=== PATIENT | male | born 1950 | race Caucasian/White ===

== ENCOUNTER 2019-11-12 18:22 | Emergency (ER) | payer MEDICARE ==
[2019-11-12 18:27] VITALS: BP 183/99; PULSE 97; RESP 20; TEMP 98.2
[2019-11-12] MEDS ORDERED: DIPH,PERTUS(ACELL)TETVAC-LF 0.5 ML VIAL IM ONE (18:34)
[2019-11-12] MEDS ORDERED: LIDOCAINE 1% INJ 10MG/ML (20 ML MDV) SQ ONE (18:34)
[2019-11-12] MEDS ORDERED: CEPHALEXIN 500MG STARTER PACK 4 CAP BTL PO STA (18:59)
--- NOTE | 2019-11-12 18:59 | ED ---
Wound/Laceration HPI - General Chief Complaint: Wound/Laceration Stated Complaint: thumb lac Time Seen by Provider: 11/12/19 18:34 Source: patient Mode of arrival: ambulatory Limitations: no limitations - History of Present Illness Initial Comments: 69yo male presenting today for chief complaint of thumb laceration x just prior to arrival. Patient states that that he was moving a stove when he caught his right thumb. Patient states would not I need laceration repair and presented to the ER. Patient has no limitations in range of motion of thumb strength or decreased sensation. Patient has no additional complaints. Patient appears well nontoxic. Unsure of last tetanus. Patient presented for repair. Denies small shards or debris that could have gotten into the cut. Patient has no additional complaints. Denies other areas of injury. - Related Data Previous Rx's Medication Instructions Recorded Acetaminophen with Codeine 1 each PO Q4H PRN #20 tab 10/28/14 [Tylenol w/codeine #3] Acetaminophen with Codeine 1 each PO Q4H PRN #20 tab 10/28/14 [Tylenol w/codeine #3] Ibuprofen [Motrin] 800 mg PO Q8HR PRN #30 tab 10/28/14 Cephalexin [Keflex] 500 mg PO Q8HR 3 Days #9 cap 11/12/19 Allergies Allergy/AdvReac Type Severity Reaction Status Date / Time Penicillins Allergy Unknown Verified 11/12/19 18:27 Childhood Review of Systems ROS Statement: Those systems with pertinent positive or pertinent negative responses have been documented in the HPI. ROS Other: All systems not noted in ROS Statement are negative. Past Medical History Past Medical History: No Reported History History of Any Multi-Drug Resistant Organisms: None Reported Past Surgical History: Bowel Resection Past Psychological History: Anxiety, Depression Smoking Status: Former smoker Past Alcohol Use History: None Reported Past Drug Use History: None Reported General Exam - General Exam Comments Initial Comments: General: The patient is awake and alert, in no distress Eye: +3 mm pupils are equal, round and reactive to light, extra-ocular movements are intact. No nystagmus. There is normal conjunctiva bilaterally. No signs of icterus. Cardiovascular: There is a regular rate and rhythm. No murmur, rub or gallop is appreciated. Respiratory: Lungs are clear to auscultation, respirations are non-labored, breath sounds are equal. No wheezes, stridor, rales, or rhonchi. Gastrointestinal: Soft, non-distended, non-tender abdomen without masses or organomegaly noted. There is no rebound or guarding present. Musculoskeletal: Normal ROM, no tenderness. Strength 5/5 of the thumb and MCP and IP joint. Sensation intact. Radial pulses equal bilaterally 2+. Neurological: A&O x 3. CN II-XII intact grossly, There are no obvious motor or sensory deficits. Coordination appears grossly intact. Speech is normal. Skin: Skin is warm and dry and no rashes. Dog ear like laceration of the right thumb dorsal surface. Patient has no exposure of tendon/underlying structures. Mild oozing active bleeding. Psychiatric: Cooperative, appropriate mood & affect, normal judgment. Limitations: no limitations Course Vital Signs 11/12/19 18:24 Temperature 98.2 F Pulse Rate 97 Respiratory 20 Rate Blood Pressure 183/99 O2 Sat by Pulse 99 Oximetry Procedures - Laceration Laceration #1 Consent Obtained: verbal consent Indication: laceration Site: hand (right thumb) Size (cm): 2 Description: irregular Depth: simple, single layer Anesthetic Used: lidocaine 1% Anesthesia Technique: local infiltration Amount (mls): 1 Pre-repair: wound explored, irrigated extensively, deep structures intact Type of Sutures: nylon Size of Sutures: 5-0 Number of Sutures: 5 Technique: simple, interrupted Patient Tolerated Procedure: well, no complications Medical Decision Making - Medical Decision Making 69-year-old male presented for thumb laceration irrigated extensively explored. Appears superficial underlying structures. no weakness appreciated at the ip or mcp joints. sensation intact. Laceration repair wound edges approximated well patient will be discharged with antibiotics instruction for suture care and return parameters. Patient is to follow-up primary care provider Rj discuss patient verbalizes understanding Disposition Clinical Impression: Laceration of right thumb Disposition: HOME SELF-CARE Condition: Good Instructions (If sedation given, give patient instructions): Care For Your Stitches (ED), Laceration (ED) Additional Instructions: Please use medication as discussed. Please follow-up with family doctor in the next 2 days, return for 7-10 days for suture removal. [facility] if the symptoms increase or worsen or for any other concerns. Prescriptions: Cephalexin [Keflex] 500 mg PO Q8HR 3 Days #9 cap Is patient prescribed a controlled substance at d/c from ED?: No Referrals: Sho Handy MD [Primary Care Provider] - 1-2 days Time of Disposition: 18:59
== END 2019-11-12 19:30 | disposition home or self-care (01) ==
LOC: EC 18:22
DX: S61.011A Laceration without foreign body of right thumb without damage to nail, initial encounter (principal); Z23 Encounter for immunization; Z88.0 Allergy status to penicillin; Z87.891 Personal history of nicotine dependence; W23.0XXA Caught, crushed, jammed, or pinched between moving objects, initial encounter
CPT/HCPCS: 90715; 99282; 12001; 90471; J2001

== ENCOUNTER 2020-10-16 12:28 | Emergency (ER) | payer MEDICARE ==
[2020-10-16 12:48] VITALS: BP 188/85; PULSE 89; RESP 20; TEMP 98.3
[2020-10-16] MEDS ORDERED: LIDOCAINE 1%-EPI 1:100,000 20 ML VIAL SQ STA (14:09)
--- NOTE | 2020-10-16 14:48 | ED ---
Wound/Laceration HPI - General Chief Complaint: Wound/Laceration Stated Complaint: leg lac Time Seen by Provider: 10/16/20 14:05 Source: patient Mode of arrival: wheelchair Limitations: no limitations - History of Present Illness Initial Comments: 70-year-old male presents to emergency Department with a chief complaint of laceration. He states this occurred about one hour prior to arrival. Patient states he was using a cutoff wheel earlier today when it slipped, lacerating the anterior aspect of his left lower extremity. Reports some bleeding which has since mostly resolved. Tetanus is up-to-date. Reports some pain with palpation to the region but reports full range of motion in his lower extremity. Denies any paresthesias. Denies taking medication to alleviate the symptoms. Denies blood thinners. - Related Data Previous Rx's Medication Instructions Recorded Acetaminophen with Codeine 1 each PO Q4H PRN #20 tab 10/28/14 [Tylenol w/codeine #3] Acetaminophen with Codeine 1 each PO Q4H PRN #20 tab 10/28/14 [Tylenol w/codeine #3] Ibuprofen [Motrin] 800 mg PO Q8HR PRN #30 tab 10/28/14 Cephalexin [Keflex] 500 mg PO Q8HR 3 Days #9 cap 11/12/19 Cephalexin [Keflex] 500 mg PO TID 5 Days #15 cap 10/16/20 Allergies Allergy/AdvReac Type Severity Reaction Status Date / Time Penicillins Allergy Unknown Verified 10/16/20 12:48 Childhood Review of Systems ROS Statement: Those systems with pertinent positive or pertinent negative responses have been documented in the HPI. ROS Other: All systems not noted in ROS Statement are negative. Past Medical History Past Medical History: No Reported History History of Any Multi-Drug Resistant Organisms: None Reported Past Surgical History: Bowel Resection Past Psychological History: Anxiety, Depression Smoking Status: Never smoker Past Alcohol Use History: None Reported Past Drug Use History: Marijuana General Exam Limitations: no limitations General appearance: alert, in no apparent distress Head exam: Present: atraumatic, normocephalic, normal inspection Eye exam: Present: normal appearance, PERRL, EOMI Pupils: Present: normal accommodation ENT exam: Present: normal exam, normal oropharynx, mucous membranes moist Neck exam: Present: normal inspection, full ROM. Absent: tenderness, lymphadenopathy Respiratory exam: Present: normal lung sounds bilaterally. Absent: respiratory distress Cardiovascular Exam: Present: regular rate, normal rhythm, normal heart sounds. Absent: systolic murmur Extremities exam: Present: full ROM, tenderness (Tenderness at the laceration site), normal capillary refill, other (Palpable DP and PT bilaterally. Sensation intact in the left lower extremity). Absent: normal inspection (7 cm laceration to the anterior aspect of the left lower extremity.), pedal edema, joint swelling, calf tenderness Back exam: Present: normal inspection, full ROM. Absent: tenderness, CVA tenderness (R), CVA tenderness (L) Neurological exam: Present: alert, oriented X3, normal gait Psychiatric exam: Present: normal affect, normal mood Skin exam: Present: warm, dry, intact, normal color Course Vital Signs 10/16/20 12:44 Temperature 98.3 F Pulse Rate 89 Respiratory 20 Rate Blood Pressure 188/85 O2 Sat by Pulse 96 Oximetry Procedures - Laceration Laceration #1 Consent Obtained: verbal consent Indication: laceration Site: lower extremity Size (cm): 7 Description: linear, clean Depth: simple, single layer Sedation/Analgesia: none Anesthetic Used: lidocaine 1%, with epi Anesthesia Technique: local infiltration Amount (mls): 5 Pre-repair: irrigated extensively, deep structures intact Type of Sutures: nylon Size of Sutures: 4-0 Number of Sutures: 7 Technique: simple, interrupted Patient Tolerated Procedure: well, no complications Medical Decision Making - Medical Decision Making 70-year-old male presents to emergency Department with the chief complaint laceration. Laceration site was thoroughly irrigated with saline. This is superficial laceration with no signs of foreign body. His tetanus is up-to-date. Laceration site was repaired with 7 sutures. Patient told the procedure well. He will be discharged with Keflex. Return parameters were thoroughly discussed with patient was understanding and agreeable. Case discussed with Dr. Ch. Disposition Clinical Impression: Laceration Disposition: HOME SELF-CARE Condition: Stable Instructions (If sedation given, give patient instructions): Care For Your Stitches (DC), Laceration (DC) Additional Instructions: Please return to the emergency room in 12 days to have sutures removed. Please watch for any signs of infection which may include increased pain, swelling, redness, fever or chills. Please return to emergency room for any signs of infection do occur. Please use clean soap and water over the area to prevent scabbing over your stitches. Please leave wound covered for the first 24-48 hours and then leave wound open to air. Please return to the emergency room for any other concerns. Prescriptions: Cephalexin [Keflex] 500 mg PO TID 5 Days #15 cap Is patient prescribed a controlled substance at d/c from ED?: No Referrals: Sho Handy MD [Primary Care Provider] - 1-2 days Time of Disposition: 14:48
== END 2020-10-16 14:58 | disposition home or self-care (01) ==
LOC: EC 12:28
DX: S81.812A Laceration without foreign body, left lower leg, initial encounter (principal); F32.9 Major depressive disorder, single episode, unspecified; W26.8XXA Contact with other sharp object(s), not elsewhere classified, initial encounter; F12.90 Cannabis use, unspecified, uncomplicated
CPT/HCPCS: 12002; 96372; 99283

== ENCOUNTER → 2022-04-07 | Outpatient (CLI) | payer MEDICARE ==
--- NOTE | 2022-04-07 14:54 | XR ---
EXAMINATION TYPE: XR chest 2V DATE OF EXAM: 04/07/2022 2:43 PM COMPARISON: Right wrist radiographs 10/20/2014. TECHNIQUE: XR chest 2V Frontal and lateral views of the chest. CLINICAL INDICATION:Male, 72 years old with history of R05.9 COUGH; FINDINGS: Lungs/Pleura: Small right pleural effusion with basilar patchy airspace opacities. Pulmonary vascularity: Unremarkable. Heart/mediastinum: Cardiomediastinal silhouette is unremarkable. Musculoskeletal: Multiple level degenerative disc disease changes seen throughout the spine. IMPRESSION: Small right pleural effusion with patchy basilar airspace opacities which may represent infiltrate an d/or atelectasis.
== END | disposition home or self-care (01) ==
LOC: RADXRMAIN 14:32
PROVIDERS: ATTEND Internal Medicine
DX: J90 Pleural effusion, not elsewhere classified (principal)
CPT/HCPCS: 71046

== ENCOUNTER 2022-04-27 12:14 | Observation (INO) | payer MEDICARE ==
--- NOTE | 2022-04-27 13:30 | ED ---
SOB HPI - General Chief Complaint: Shortness of Breath Stated Complaint: EVER Time Seen by Provider: 04/27/22 12:57 Source: patient, family, RN notes reviewed Mode of arrival: ambulatory Limitations: no limitations - History of Present Illness Initial Comments: 72-year-old male former smoker who still smokes marijuana no diagnosed history of lung disease but he did also work in a brass foundry in the past who presents with complaints of shortness of breath getting worse not better he was diagnosed with a pleural effusion on x-ray done on the sixth of this month. He also had been diagnosed with bronchitis placed on medication which did help. He still having shortness of breath now some cough no overt fevers chills or sweats approximate 10 pound weight loss recently. - Related Data Home Medications Medication Instructions Recorded Confirmed Ascorbic Acid [Vitamin C] 500 mg PO DAILY 04/27/22 04/27/22 Calcium Carbonate [Calcium] 600 mg PO DAILY 04/27/22 04/27/22 Ibuprofen [Motrin] 400 mg PO Q4H 04/27/22 04/27/22 Magnesium 200 mg PO DAILY 04/27/22 04/27/22 Venlafaxine HCl ER [Effexor XR] 75 mg PO DAILY 04/27/22 04/27/22 Venlafaxine HCl [Effexor XR] 150 mg PO DAILY 04/27/22 04/27/22 Zinc Gluconate [Zinc] 50 mg PO DAILY 04/27/22 04/27/22 Allergies Allergy/AdvReac Type Severity Reaction Status Date / Time Penicillins Allergy Rash/Hives Verified 04/27/22 14:23 Review of Systems ROS Statement: Those systems with pertinent positive or pertinent negative responses have been documented in the HPI. ROS Other: All systems not noted in ROS Statement are negative. Past Medical History Past Medical History: No Reported History History of Any Multi-Drug Resistant Organisms: None Reported Past Surgical History: Bowel Resection Past Psychological History: Anxiety, Depression Smoking Status: Never smoker Past Alcohol Use History: None Reported Past Drug Use History: Marijuana General Exam - General Exam Comments Initial Comments: This is a well-developed well-nourished awake alert oriented 4 male Limitations: no limitations General appearance: alert, in no apparent distress Head exam: Present: atraumatic, normocephalic, normal inspection Eye exam: Present: normal appearance, PERRL, EOMI. Absent: scleral icterus, conjunctival injection, periorbital swelling ENT exam: Present: mucous membranes dry Neck exam: Present: normal inspection, full ROM, other. Absent: tenderness, meningismus, lymphadenopathy Respiratory exam: Present: decreased breath sounds (No stridor or bruits). Absent: respiratory distress, wheezes, rales, rhonchi, stridor Cardiovascular Exam: Present: regular rate, normal rhythm, normal heart sounds. Absent: systolic murmur, diastolic murmur, rubs, gallop, clicks GI/Abdominal exam: Present: soft, normal bowel sounds. Absent: distended, tenderness, guarding, rebound, rigid Extremities exam: Present: normal inspection, full ROM, normal capillary refill. Absent: tenderness, pedal edema, joint swelling, calf tenderness Back exam: Present: normal inspection Neurological exam: Present: alert, oriented X3, CN II-XII intact Psychiatric exam: Present: normal affect, normal mood Skin exam: Present: warm, dry, intact, normal color. Absent: rash Course Vital Signs 04/27/22 12:50 Temperature 97.8 F Pulse Rate 106 H Respiratory 18 Rate Blood Pressure 166/103 O2 Sat by Pulse 96 Oximetry Medical Decision Making - Medical Decision Making I did discuss the findings with the patient and family members CAT scan is negative for evidence of a however is evidence of effusion in possible mass. Dr. Cooper did come the emergency department to see the patient patient will be admitted with consultation by Dr. Perkins as well as cardiology. Was pt. sent in by a medical professional or institution? @ No -[by , PA, MICROSYSTEMS ENGINEER, urgent care, hospital, or correction] Did you speak to anyone other than the patient for history? @ EMS personnel -[EMS, parent, family, police, friend?] Did you review nursing and triage notes? @ Agree -[agree or disagree, why?] Were old charts reviewed? @ Previous x-ray reviewed which showed evidence of right effusion-[outside hosp., previous admissions, EMS record, old EKG, old radiological studies, urgent care reports/EKGs, correction records?] Differential Diagnosis? @ CHF, angina, CAD, pulmonary embolus, -[chest pain, altered mental status abdominal pain women, abdominal pain men, vaginal bleeding, weakness, fever, dyspnea, syncope, headache, dizziness, GI bleed, back pain, seizure] EKG interpreted by me (3pts min.)? @ Yes-[none] X-rays interpreted by me (1pt min.)? @ Yes-[none] CT interpreted by me (1pt min.)? @ Yes-[none] U/S interpreted by me (1pt. min.)? @ -[none] What testing was considered but not performed? (CT, X-rays, U/S, labs)? Why? @ Not applicable [CT, X-rays, U/S, labs? Why?] What meds were considered but not given? Why? @ -[none] Did you discuss the management of the patient with other professionals? @ Yes Dr. Cooper -[professionals i.e. Dr, PA, MICROSYSTEMS ENGINEER, Lab, RT, Psych Nurse, Rip Sawyer, Collision Technician, Teacher, Broke Man, case resource manager? Give summary] Did you reconcile home meds? @ -[none] Was smoking cessation discussed for >3mins.? @ Yes-[none] Was critical care preformed (if so, how long)? @ -[none] Were there social determinants of health that impacted care today? How? (Homelessness, low income, unemployed, alcoholism, drug addiction, transportation, low edu. Level, literacy, decrease access to med. care, correction, rehab)? @ -[Homelessness, low income, unemployed, alcoholism, drug addiction, transportation, low edu. Level, literacy, decrease access to med. care, correction, rehab?] Was there de-escalation of care discussed even if they declined? (Discuss DNR or withdrawal of care, Hospice)? @ -[Discuss DNR or withdrawal of care, Hospice?] What co-morbidities impacted this encounter? (DM, HTN, Smoking, COPD, CAD, Cancer, CVA, Hep., AIDS, mental health diagnosis, sleep apnea, morbid obesity)? @ Considerations COPD-[DM, HTN, Smoking, COPD, CAD, Cancer, CVA, Hep., AIDS, mental health diagnosis, sleep apnea, morbid obesity?] Was patient admitted / discharged? @ Admitted -[hospital course] Undiagnosed new problem with uncertain prognosis? @ Possible lung mass-[none] Drug Therapy requiring intensive monitoring for toxicity (Heparin, Nitro, Insulin, Cardizem)? @ -[none] Were any procedures done? @ -[none] Diagnosis/symptom? @ Pleural effusion, elevated troponin, elevated d-dimer, possible lung mass- [default] Acute, or Chronic, or Acute on Chronic? @ -[default] Uncomplicated (without systemic symptoms) or Complicated (systemic symptoms)? @ -[default] Side effects of treatment? @ -[none] Exacerbation, Progression, or Severe Exacerbation] @ -[no] Poses a threat to life or bodily function? @ -[no] - Lab Data Result diagrams: 04/27/22 14:17 04/27/22 14:17 Lab Results 04/27/22 04/27/22 04/27/22 Range/Units 14:17 14:17 14:17 WBC 9.4 (3.8-10.6) k/uL RBC 4.39 (4.30-5.90) m/uL Hgb 14.5 (13.0-17.5) gm/dL Hct 43.5 (39.0-53.0) % MCV 99.2 (80.0-100.0) fL MCH 33.1 (25.0-35.0) pg MCHC 33.3 (31.0-37.0) g/dL RDW 12.5 (11.5-15.5) % Plt Count 184 (150-450) k/uL MPV 10.2 Neutrophils % 80 % Lymphocytes % 11 % Monocytes % 6 % Eosinophils % 1 % Basophils % 1 % Neutrophils # 7.6 (1.3-7.7) k/uL Lymphocytes # 1.0 (1.0-4.8) k/uL Monocytes # 0.5 (0-1.0) k/uL Eosinophils # 0.1 (0-0.7) k/uL Basophils # 0.1 (0-0.2) k/uL PT 10.5 (9.0-12.0) sec INR 1.0 (<1.2) APTT 25.2 (22.0-30.0) sec D-Dimer 1.00 H (<0.60) mg/L FEU Sodium 140 (137-145) mmol/L Potassium 4.3 (3.5-5.1) mmol/L Chloride 112 H (98-107) mmol/L Carbon Dioxide 22 (22-30) mmol/L Anion Gap 6 mmol/L BUN 24 H (9-20) mg/dL Creatinine 1.00 (0.66-1.25) mg/dL Est GFR (CKD-EPI)AfAm 87 (>60 ml/min/1.73 sqM) Est GFR (CKD-EPI)NonAf 75 (>60 ml/min/1.73 sqM) Glucose 117 H (74-99) mg/dL Plasma Lactic Acid Col[place] (0.7-2.0) mmol/L Calcium 8.8 (8.4-10.2) mg/dL Magnesium 1.9 (1.6-2.3) mg/dL Total Bilirubin 0.9 (0.2-1.3) mg/dL AST 35 (17-59) U/L ALT 29 (4-49) U/L Alkaline Phosphatase 68 (38-126) U/L Troponin I (0.000-0.034) ng/mL NT-Pro-B Natriuret Pep pg/mL Total Protein 6.4 (6.3-8.2) g/dL Albumin 3.8 (3.5-5.0) g/dL 04/27/22 04/27/22 04/27/22 Range/Units 14:17 14:17 14:17 WBC (3.8-10.6) k/uL RBC (4.30-5.90) m/uL Hgb (13.0-17.5) gm/dL Hct (39.0-53.0) % MCV (80.0-100.0) fL MCH (25.0-35.0) pg MCHC (31.0-37.0) g/dL RDW (11.5-15.5) % Plt Count (150-450) k/uL MPV Neutrophils % % Lymphocytes % % Monocytes % % Eosinophils % % Basophils % % Neutrophils # (1.3-7.7) k/uL Lymphocytes # (1.0-4.8) k/uL Monocytes # (0-1.0) k/uL Eosinophils # (0-0.7) k/uL Basophils # (0-0.2) k/uL PT (9.0-12.0) sec INR (<1.2) APTT (22.0-30.0) sec D-Dimer (<0.60) mg/L FEU Sodium (137-145) mmol/L Potassium (3.5-5.1) mmol/L Chloride (98-107) mmol/L Carbon Dioxide (22-30) mmol/L Anion Gap mmol/L BUN (9-20) mg/dL Creatinine (0.66-1.25) mg/dL Est GFR (CKD-EPI)AfAm (>60 ml/min/1.73 sqM) Est GFR (CKD-EPI)NonAf (>60 ml/min/1.73 sqM) Glucose (74-99) mg/dL Plasma Lactic Acid [place] 1.1 (0.7-2.0) mmol/L Calcium (8.4-10.2) mg/dL Magnesium (1.6-2.3) mg/dL Total Bilirubin (0.2-1.3) mg/dL AST (17-59) U/L ALT (4-49) U/L Alkaline Phosphatase (38-126) U/L Troponin I 0.083 H* (0.000-0.034) ng/mL NT-Pro-B Natriuret Pep 3280 pg/mL Total Protein (6.3-8.2) g/dL Albumin (3.5-5.0) g/dL - EKG Data -: EKG Interpreted by Me EKG Comments: I did interpret EKG sinus tachycardia rate 104. Interval 149 QRS duration 94 QT since QTC 367/427 possible right atrial enlargement nonspecific T-wave configuration unifocal PVC noted - Radiology Data Interpreted by me: Did interpret imaging evidence of right effusion on x-ray CT shows evidence of effusion with a possible mass. No pulmonary embolus identified Disposition Clinical Impression: Pleural effusion, right, Lung mass, Elevated troponin, Elevated d-dimer Disposition: ADMITTED IP TO THIS [facility] Condition: Fair Referrals: Sho Handy MD [Primary Care Provider] - 1-2 days Decision Date: 04/27/22 Decision Time: 16:00
--- NOTE | 2022-04-27 13:44 | XR ---
EXAMINATION TYPE: XR chest 2V DATE OF EXAM: 04/27/2022 1:40 PM COMPARISON: 04/07/2022 TECHNIQUE: XR chest 2V Frontal and lateral views of the chest. CLINICAL INDICATION:Male, 72 years old with history of difficulty breathing; FINDINGS: Lungs/Pleura: Increase loculated opacities in the right pleura most pronounced in the lower lateral a spect. There is no evidence for left-sided pleural effusion, focal consolidation, or pneumothorax. Pulmonary vascularity: Unremarkable. Heart/mediastinum: Cardiomediastinal silhouette is unremarkable. Musculoskeletal: No acute osseous pathology. IMPRESSION: Increased right loculated pleural effusion with fluid in the right minor fissure.
[2022-04-27 14:28] LABS: Basophils # (A) 0.1 k/uL (0-0.2); Basophils % (A) 1 %; Eosinophils # (A) 0.1 k/uL (0-0.7); Eosinophils % (A) 1 %; HCT 43.5 % (39.0-53.0); HGB 14.5 gm/dL (13.0-17.5); Lymphocytes % (A) 11 %; MCH 33.1 pg (25.0-35.0); MCHC 33.3 g/dL (31.0-37.0); MCV 99.2 fL (80.0-100.0); Mean Platelet Volume 10.2; Monocytes # (A) 0.5 k/uL (0-1.0); Monocytes % (A) 6 %; Neutrophils # (A) 7.6 k/uL (1.3-7.7); Neutrophils % (A) 80 %; Platelet Count 184 k/uL (150-450); RBC 4.39 m/uL (4.30-5.90); RDW 12.5 % (11.5-15.5); WBC 9.4 k/uL (3.8-10.6)
[2022-04-27 14:37] LABS: Albumin 3.8 g/dL (3.5-5.0); Calcium 8.8 mg/dL (8.4-10.2); Magnesium 1.9 mg/dL (1.6-2.3); Potassium 4.3 mmol/L (3.5-5.1); Total Bilirubin 0.9 mg/dL (0.2-1.3); Total Protein 6.4 g/dL (6.3-8.2)
[2022-04-27 14:43] LABS: Partial Thromboplastin Time 25.2 sec (22.0-30.0); Prothrombin Time 10.5 sec (9.0-12.0)
--- NOTE | 2022-04-27 16:08 | CT ---
EXAMINATION TYPE: CT angio chest DATE OF EXAM: 04/27/2022 COMPARISON: None HISTORY: 72 year-old male shortness of breath, possible PE. TECHNIQUE: Contiguous axial scanning of the chest performed with IV Contrast, patient injected with 7 7 mL of Isovue 370. Coronal/sagittal MIP reconstructions performed. CT DLP: 417.5 mGycm Automated exposure control for dose reduction was used. FINDINGS: Heart upper limits of normal in size without pericardial effusion. No flattening of the interventricu lar septum though there is reflux into the hepatic veins. Aneurysmal ascending aorta at 4.1 cm. Dense contrast bolus obscures the arch vessels. Mild aneurysm u pper descending thoracic aorta 3.7 cm and distally at 3.1 cm. Mildly enlarged mediastinal lymph nodes, lower right paratracheal up to 1.2 cm and right hilar measur ing up to 2.0 cm. Left hilar measuring 1.8 x 1.1 cm. Subcarinal measuring 1.6 cm. Large caliber to the main right and left pulmonary arteries measuring up to 3.1 cm compatible with un derlying pulmonary hypertension. There is satisfactory opacification of the pulmonary arterial system without evidence for pulmonary embolus. Scattered mild septal lines. Mild emphysematous change. Bronchial wall thickening. Suspect some pleur al parenchymal scarring at the right base. Possibly developing groundglass changes posterior right ba se. Possible pseudomass, loculated effusion right mid lung along the minor fissure measuring 7.2 x 4.6 cm , axial image 76. Reassess that short interval follow-up. Tiny hiatal hernia. Visualized upper abdomen shows left-sided colonic diverticulosis, partially visua lized left renal cyst measuring 2.4 cm. Bones: Mild to moderate degenerative disc disease mid to lower thoracic spine. Prominent anterior end plate spondylosis throughout. IMPRESSION: 1. NO EVIDENCE FOR PULMONARY EMBOLUS. 2. HOWEVER, THERE IS BORDERLINE HEART SIZE, PULMONARY ARTERIAL HYPERTENSION, SCATTERED MILD SEPTAL LI TERESA AND INTERSTITIAL THICKENING. CORRELATE FOR ELEVATED CARDIAC PRESSURE/EARLY CHF. NO PULMONARY MIL[place]RO A. 3. BORDERLINE TO MILDLY ENLARGED MEDIASTINAL AND HILAR LYMPH NODES MEASURING UP TO 2.0 CM MAY BE REAC TIVE. 2 MONTH FOLLOW-UP CT TO REASSESS. 4. A POSSIBLE PSEUDOMASS AT THE RIGHT MIDLUNG MEASURING 7.2 CM CAN ALSO BE REASSESSED AT FOLLOW-UP. A S THIS IS LOCATED ALONG THE MINOR FISSURE, IT MAY CORRESPOND TO LOCULATED PLEURAL EFFUSION RATHER ROGELIO N A MASS. 5. ANEURYSMAL THORACIC AORTA UP TO 4.1 CM.
[2022-04-27] MEDS ORDERED: ACETAMINOPHEN TAB 325 MG TAB PO PRN (16:24)
[2022-04-27] MEDS ORDERED: NALOXONE 0.4 MG/ML 1 ML VIAL IV PRN (16:24)
[2022-04-27] MEDS ORDERED: ONDANSETRON 4 MG/2 ML VIAL IVP PRN (16:24)
[2022-04-27] MEDS ORDERED: ALPRAZolam 0.25 MG TAB PO PRN (16:32)
[2022-04-27] MEDS ORDERED: TEMAZEPAM 15 MG CAP PO PRN (16:32)
[2022-04-27] MEDS: FUROSEMIDE 10 MG/ML 4 ML VIAL IV SCH ×2 (17:10→20:51)
[2022-04-27] MEDS: SODIUM CHLORIDE 0.9% 1,000 ML IV SCH (17:10)
--- NOTE | 2022-04-27 21:37 | HP ---
HISTORY AND PHYSICAL CHIEF COMPLAINTS: Shortness of breath and weight loss. HISTORY OF PRESENT ILLNESS: This is a 72-year-old gentleman with a past medical history of bowel resection, anxiety, depression, was complaining of shortness of breath which is aggravated previously. Patient had right pleural effusion which has increased in intensity. The patient is also short of breath on ambulation also. Patient came to [facility]. D-dimer was elevated. CT angio, chest CT for pulmonary embolism. Troponin elevated 0.083. Patient evaluation and treatment. There is no history of any fever, rigors, or chills. PAST MEDICAL HISTORY: History of bowel resection, anxiety, and depression. HOME MEDICATIONS: Reviewed include zinc, dose and rest of medications noted. ALLERGIES: Reviewed include penicillin. FAMILY HISTORY: No history of heart disease or strokes in the family. SOCIAL HISTORY: No history of smoking or history of THC. REVIEW OF SYSTEMS: A 14-point review is negative except as mentioned earlier. PHYSICAL EXAMINATION: VITAL SIGNS: Pulse is 106, blood pressure 160/103, and respirations 18. HEENT: Conjunctivae normal. NECK: No jugular venous distention. CARDIOVASCULAR: S1, S2. RESPIRATIONS: Diminished at the bases, few scattered rhonchi and crackles. ABDOMEN: Soft, nontender. LEGS: Minimal bilateral leg edema. NERVOUS SYSTEM: Higher functions as mentioned earlier. Moves all 4 limbs. Nonfocal. LYMPHATICS: No lymph node palpable in neck, axillae or groin. SKIN: No ulcer, rash, bleeding. JOINTS: No active deforming arthropathy. LABORATORY DATA: CBC within normal. D-dimer is 1. Rest of the labs are noted. Chest x-ray reviewed personally. ASSESSMENT: 1. Right pleural effusion, shortness of breath, possible congestive heart failure acute exacerbation. 2. Weight loss. Rule out malignancy. 3. Troponin 0.083. Rule out acute non ZW-emnykle-xvaezexwo myocardial infarction. 4. History of bowel resection. 5. Anxiety, depression. 6. Hypertension. RECOMMENDATIONS: This 72-year-old gentleman who presented with multiple complex medical issues, we will monitor the patient closely. We will initiate diuretics cardiology and pulmonary consultations. The prognosis is guarded because of multiple complex medical issues. Further recommendations to follow. The patient also had abnormal CAT scan of the chest also. CT of the chest which will be reviewed and the patient might be a candidate for bronchoscopy. Further recommendations to follow. MMODL / IJN: [id number] /
[2022-04-27] MEDS: carvediloL 6.25 MG TAB PO SCH (23:11)
[2022-04-28] MEDS: carvediloL 6.25 MG TAB PO SCH ×2 (06:53→17:05)
[2022-04-28] MEDS: SODIUM CHLORIDE 0.9% 1,000 ML IV SCH ×2 (06:54→21:23)
[2022-04-28 07:56] LABS: Basophils # (A) 0.1 k/uL (0-0.2); Basophils % (A) 1 %; Eosinophils # (A) 0.2 k/uL (0-0.7); Eosinophils % (A) 2 %; HCT 43.1 % (39.0-53.0); HGB 14.4 gm/dL (13.0-17.5); Lymphocytes # (A) 1.1 k/uL (1.0-4.8); Lymphocytes % (A) 12 %; MCH 33.2 pg (25.0-35.0); MCHC 33.5 g/dL (31.0-37.0); MCV 99.1 fL (80.0-100.0); Mean Platelet Volume 9.6; Monocytes # (A) 0.6 k/uL (0-1.0); Monocytes % (A) 6 %; Neutrophils # (A) 7.3 k/uL (1.3-7.7); Neutrophils % (A) 78 %; Platelet Count 196 k/uL (150-450); RBC 4.35 m/uL (4.30-5.90); RDW 12.4 % (11.5-15.5); WBC 9.4 k/uL (3.8-10.6)
[2022-04-28 08:12] LABS: Calcium 8.7 mg/dL (8.4-10.2); Potassium 3.4 mmol/L (3.5-5.1)
[2022-04-28] MEDS ORDERED: ENOXAPARIN 40 MG/0.4 ML SYRINGE SQ SCH (09:00)
[2022-04-28] MEDS: CALCIUM CARBONATE 500 MG CHEWABLE PO SCH (09:51)
[2022-04-28] MEDS: ASCORBIC ACID 500 MG TAB PO SCH (09:51)
[2022-04-28] MEDS: ZINC SULFATE 220 MG CAP PO SCH (09:51)
[2022-04-28] MEDS: MAGNESIUM OXIDE 400 MG TAB PO SCH (09:51)
[2022-04-28] MEDS ORDERED: POTASSIUM CHLORIDE ER 20 MEQ TAB.ER PO STA (10:09)
[2022-04-28] MEDS: VENLAFAXINE HCL ER 150 MG CAP PO SCH (10:34)
[2022-04-28] MEDS: VENLAFAXINE HCL ER 75 MG CAP PO SCH (10:35)
[2022-04-28] MEDS: FUROSEMIDE 10 MG/ML 4 ML VIAL IV SCH ×2 (10:35→21:26)
--- NOTE | 2022-04-28 10:45 | US ---
EXAMINATION TYPE: US chest DATE OF EXAM: 04/28/2022 COMPARISON: Radiograph 04/27/2022 CLINICAL HISTORY: 72-year-old male RIGHT PLEURAL EFFUSION. Pleural effusion TECHNIQUE: Targeted ultrasound of the posterior lower bilateral hemithoraces EXAM MEASUREMENTS: Right Pleural Effusion pocket size: No fluid visualized. Left Pleural Effusion pocket size: No fluid visualized. Right side not marked for possible thoracentesis outside the dept. Pulmonologists are able to review the images in the patient?s EMR. IMPRESSIONS: No layering basilar pleural effusion on either side. Note that the possible pseudomass right midlung is more difficult to assess by ultrasound.
--- NOTE | 2022-04-28 11:13 | P.CNPUL ---
History of Present Illness Consult date: 04/28/22 Requesting physician: Cuca Cooper Reason for consult: dyspnea, abnormal CXR/CT Chief complaint: Shortness of breath. History of present illness: Pulmonary consult dated 04/28/2022. 72-year-old male seen in the emergency department on April 27, because of shortness of breath. The patient was a former smoker, and does smoke medical marijuana currently. The patient apparently came in with a diagnosis of shortness of breath. The patient's x-ray showed evidence of a right-sided pleural effusion, which appear to be a bit loculated, and was tracking along the minor fissure. The patient had a prior chest x-ray on April 07, which also showed a right-sided pleural effusion. The more recent chest x-ray, shows the effusion to be a bit worse. He also was recently diagnosed with bronchitis, and was treated, improved. Patient denied any chest pain or chest discomfort. There is no fever or chills. There was no cough or phlegm production. CBC was completely normal. D-dimer was 1.0. Sodium 140, potassium 3.4, chlorides 107, CO2 27, BUN 24, and creatinine 1.17. Glucose was 109. Troponins were 0.083, 0.091, and 0.097. N-terminal proBNP was 3280. The patient tested negative for influenza A and influenza B. The patient also tested negative for coronavirus infection. Chest x-ray showed a slightly enlarged right-sided pleural effusion which was loculated. CT angiogram was negative for pulmonary embolism. It did show borderline heart size, and possible early CHF. In addition, there is enlarged mediastinal and hilar lymph nodes, which may be reactive in nature. Review of Systems REVIEW OF SYSTEMS: CONSTITUTIONAL: [Negative.] NEUROLOGIC: [ Negative.] HEENT: [ Negative.] CARDIAC: [Negative.] PULMONARY: Shortness of breath. GI: [Negative.] : [Negative.] RHEUMATOLOGIC: [ Negative.] IMMUNOLOGIC: [ Negative.] ENDOCRINE: [Negative. ] DERMATOLOGIC: [Negative.] Past Medical History Past Medical History: No Reported History History of Any Multi-Drug Resistant Organisms: None Reported Past Surgical History: Bowel Resection Past Psychological History: Anxiety, Depression Smoking Status: Never smoker Past Alcohol Use History: None Reported Past Drug Use History: Marijuana Medications and Allergies Home Medications Medication Instructions Recorded Confirmed Type Ascorbic Acid [Vitamin C] 500 mg PO DAILY 04/27/22 04/27/22 History Calcium Carbonate [Calcium] 600 mg PO DAILY 04/27/22 04/27/22 History Ibuprofen [Motrin] 400 mg PO Q4H 04/27/22 04/27/22 History Magnesium 200 mg PO DAILY 04/27/22 04/27/22 History Venlafaxine HCl ER [Effexor XR] 75 mg PO DAILY 04/27/22 04/27/22 History Venlafaxine HCl [Effexor XR] 150 mg PO DAILY 04/27/22 04/27/22 History Zinc Gluconate [Zinc] 50 mg PO DAILY 04/27/22 04/27/22 History Allergies Allergy/AdvReac Type Severity Reaction Status Date / Time Penicillins Allergy Rash/Hives Verified 04/27/22 14:23 Physical Exam Osteopathic Statement: *. No significant issues noted on an osteopathic structural exam other than those noted in the History and Physical/Consult. Vitals: Vital Signs Temp Pulse Pulse Resp BP BP Pulse Ox 04/28/22 10:23 97.8 F 89 16 133/99 97 04/28/22 06:52 145/88 04/28/22 06:04 127/90 04/28/22 06:02 131/72 04/28/22 04:00 97.8 F 92 12 145/84 98 04/28/22 01:55 150/101 04/27/22 23:52 98.1 F 96 12 153/110 98 04/27/22 22:57 185/125 04/27/22 22:47 186/174 04/27/22 19:55 97.8 F 100 14 157/111 98 04/27/22 17:05 102 H 17 169/107 96 04/27/22 12:50 97.8 F 106 H 18 166/103 96 Intake and Output 04/27/22 04/28/22 04/28/22 22:59 06:59 14:59 Output Total 2800 Balance -2800 Output: Urine 2800 Other: Voiding Method Urinal Urinal No acute distress, oriented 3. No respiratory distress, conversational dyspnea , or use of accessory muscles. HEENT examination is grossly unremarkable. Neck supple. Full range of motion. No adenopathy thyromegaly or neck vein distention. Cardiovascular examination reveals regular rhythm rate. S1-S2 normal. No S3 or S4. No discernible murmur noted. Heart rate 89 bpm. Lungs reveal mostly clear breath sounds. Minimal scattered rhonchi. No wheezes or crackles. Breath sounds equal bilaterally. Room air saturation 97%. Abdomen soft bowel sounds are heard. No masses or tenderness. Extremities are intact. No cyanosis clubbing or edema. Skin is without rash or lesion. Neurologic examination is brief but nonfocal. Results - Laboratory Findings CBC and BMP: 04/28/22 07:42 04/28/22 07:42 PT/INR, D-dimer PT 10.5 sec (9.0-12.0) 04/27/22 14:17 INR 1.0 (<1.2) 04/27/22 14:17 D-Dimer 1.00 mg/L FEU (<0.60) H 04/27/22 14:17 Abnormal lab findings: Abnormal Labs 04/27/22 04/27/22 04/27/22 14:17 14:17 14:17 D-Dimer 1.00 H Potassium Chloride 112 H BUN 24 H Glucose 117 H Troponin I 0.083 H* 04/27/22 04/27/22 04/28/22 17:18 20:48 07:42 D-Dimer Potassium 3.4 L Chloride BUN 24 H Glucose 109 H Troponin I 0.091 H* 0.097 H* - Diagnostic Findings Chest x-ray: image reviewed CT scan - chest: image reviewed Assessment and Plan Assessment: Shortness of breath, which may relate to the recent episode of bronchitis, or a small loculated right-sided effusion. Rule out non-ST segment elevation myocardial infarction. No evidence of significant pleural effusion, on ultrasound of the chest. Prior history of tobacco use. History of marijuana use. No reported significant medical history. Plan: Plan dated 04/28/2022. The patient's ultrasound of the chest, did not reveal a significant fluid accumulation, worth doing a thoracentesis on. The patient will need outpatient follow-up, with a complete pulmonary function test. In addition, the patient should be seen by cardiology, to make sure that he has not had a non-ST segment elevation myocardial infarction. We will continue to follow make recommendations along the way. Prognosis is guarded. Time with Patient: Greater than 30
--- NOTE | 2022-04-28 11:50 | CONS ---
CONSULTATION HISTORY OF PRESENT ILLNESS: This is a gentleman, who has been admitted to the hospital with what seems to be a persistent right-sided pleural effusion, which almost looks like a pseudotumor and a loculated effusion. I was asked to see him mainly because of elevated troponin, which is kind of equivocal in pattern. His troponin is 0.08, 0.09, and 0.09. His BNP is elevated of more than 3000. His renal function appears to be normal. However, the right-sided pleural effusion is something that was seen a couple of weeks earlier and again demonstrates it now. He also had a CT angiogram of the chest because of elevated D-dimer, and there is no evidence to suggest any pulmonary embolism. There is borderline enlargement of hilar nodes, and there appears to be a loculated pleural effusion at the right mid lung area. His EKG revealed sinus mechanism with isolated PVCs. No acute changes. MEDICATIONS AT HOME: Include: 1. Vitamin C supplements. 2. Effexor. 3. Ibuprofen. 4. Magnesium. 5. Zinc supplements. ALLERGIES: Penicillin. PHYSICAL EXAMINATION: VITAL SIGNS: Blood pressure is 140/78, pulse rate is about 88 per minute. HEENT: Unremarkable. Fundus was not examined by me. NECK: Supple. There is no JVD. HEART: S1 and S2 heard normally. Short systolic murmur is audible. LUNGS: Reveal diminished air entry in the right mid lung area. ABDOMEN: Soft and nontender. EXTREMITIES: Lower extremities reveal diminished pulses. CENTRAL NERVOUS SYSTEM: Grossly within normal limits. IMPRESSION: 1. Elevated troponin, not suggestive of myocardial injury. 2. Right-sided pleural effusion, chronic. Pulmonary evaluation is in progress. 3. Hypertension. 4. Rule out congestive heart failure with elevated BNP. RECOMMENDATIONS: I am recommending amlodipine 5 mg daily to be added to control his blood pressure better and continue carvedilol. I will obtain echocardiogram. Potassium is low. We will supplement this and obtain an additional BMP. Assess LV function by echo. MMODL / IJN: [id number] /
[2022-04-28] MEDS ORDERED: POTASSIUM CHLORIDE ER 20 MEQ TAB.ER PO ONE (12:10)
[2022-04-28] MEDS ORDERED: IPRATROPIUM-ALBUTEROL 3 ML NEB INHALATION PRN (20:46)
[2022-04-28] MEDS: HEPARIN SODIUM,PORCINE/PF 5,000 UNIT/0.5 ML SYRINGE SQ SCH (21:26)
--- NOTE | 2022-04-29 03:11 | PN ---
PROGRESS NOTE DATE OF SERVICE: 04/28/2022 SUBJECTIVE: This 72-year-old gentleman admitted with weight loss and right pleural effusion, being closely monitored. Ultrasound of the chest was done. Cardiology and Pulmonology following the patient closely. The patient is on empiric diuretics at this time. The patient is complaining of extreme weakness, right-sided, was marked for possible thoracocentesis. PAST MEDICAL HISTORY: Reviewed. REVIEW OF SYSTEMS: 14-point review of systems is negative except as mentioned earlier. CURRENT MEDICATIONS: Reviewed include Xanax and rest of the medications noted. PHYSICAL EXAMINATION: VITAL SIGNS: Pulse is 89, blood pressure 130/90, respirations 16. HEENT: Conjunctivae normal. NECK: No JVD. CARDIOVASCULAR: S1, S2. RESPIRATORY: Breath sounds diminished at the bases. A few scattered rhonchi and crackles. ABDOMEN: Soft. NERVOUS SYSTEM: No focal deficits. LABORATORY DATA: Potassium 3.4. The rest of the labs are noted. ASSESSMENT: 1. Right pleural effusion, shortness of breath with possible congestive heart failure acute exacerbation. 2. Weight loss. Rule out malignancy. 3. Troponin 0.083. Rule out acute [id number]-ekahtkm-elevation myocardial infarction, type 2 myocardial infarction. 4. History of bowel resection. 5. Anxiety, depression. 6. Hypertension. 7. Multiple medical issues. RECOMMENDATIONS: I recommend to continue current medications, symptomatic treatment. Otherwise, I would recommend repeat labs. Supplementation. Closely follow with Pulmonary and Cardiology. Diuretics. Possible pleural effusion aspiration and further studies. Prognosis is extremely guarded because of multiple complex medical issues. Further recommendations to follow. MMODL / IJN: [id number] /
[2022-04-29 05:57] VITALS: TEMP 97.7
[2022-04-29] MEDS: carvediloL 6.25 MG TAB PO SCH (07:20)
[2022-04-29] MEDS: IPRATROPIUM-ALBUTEROL 3 ML NEB INHALATION SCH ×3 (07:39→15:55)
[2022-04-29 07:42] VITALS: RESP 16
[2022-04-29] MEDS: SODIUM CHLORIDE 0.9% 1,000 ML IV SCH (07:58)
[2022-04-29] MEDS ORDERED: amLODIPine 5 MG TAB PO SCH (09:00)
[2022-04-29 09:06] LABS: Basophils # (A) 0.1 k/uL (0-0.2); Basophils % (A) 1 %; Eosinophils # (A) 0.1 k/uL (0-0.7); Eosinophils % (A) 1 %; HCT 45.1 % (39.0-53.0); HGB 15.4 gm/dL (13.0-17.5); Lymphocytes # (A) 1.4 k/uL (1.0-4.8); Lymphocytes % (A) 15 %; MCH 33.1 pg (25.0-35.0); MCHC 34.1 g/dL (31.0-37.0); Mean Platelet Volume 9.9; Monocytes # (A) 0.5 k/uL (0-1.0); Monocytes % (A) 5 %; Neutrophils # (A) 6.8 k/uL (1.3-7.7); Neutrophils % (A) 76 %; Platelet Count 191 k/uL (150-450); RBC 4.65 m/uL (4.30-5.90); RDW 12.8 % (11.5-15.5)
[2022-04-29] MEDS: MAGNESIUM OXIDE 400 MG TAB PO SCH (09:12)
[2022-04-29] MEDS: ZINC SULFATE 220 MG CAP PO SCH (09:12)
[2022-04-29] MEDS: VENLAFAXINE HCL ER 75 MG CAP PO SCH (09:13)
[2022-04-29] MEDS: ASCORBIC ACID 500 MG TAB PO SCH (09:13)
[2022-04-29] MEDS: HEPARIN SODIUM,PORCINE/PF 5,000 UNIT/0.5 ML SYRINGE SQ SCH (09:13)
[2022-04-29] MEDS: CALCIUM CARBONATE 500 MG CHEWABLE PO SCH (09:13)
[2022-04-29] MEDS: VENLAFAXINE HCL ER 150 MG CAP PO SCH (09:13)
[2022-04-29] MEDS: FUROSEMIDE 10 MG/ML 4 ML VIAL IV SCH (09:13)
[2022-04-29 09:21] LABS: Albumin 3.6 g/dL (3.5-5.0); Calcium 8.6 mg/dL (8.4-10.2); Potassium 3.6 mmol/L (3.5-5.1); Total Protein 6.2 g/dL (6.3-8.2)
--- NOTE | 2022-04-29 10:43 | CA ---
Transthoracic Echo Report Name: Arpit Galan Age: 72 Gender: M : 1950 Exam Date: 04/29/2022 09:21 Exam Location: [facility] Ht (in): 72 Wt (lb): 177 Ordering Physician: Cuca Cooper MD Attending/Referring Phys: Electronic Engineering Technician Ivette Moreno RDCS Procedure CPT: Indications: chf Cardiac Hx: Technical Quality: Contrast 1: Total Dose (mL): Contrast 2: Total Dose (mL): MEASUREMENTS (Male / Female) Normal Values 2D ECHO LV Diastolic Diameter PLAX 5.4 cm 4.2 - 5.9 / 3.9 - 5.3 cm LV Systolic Diameter PLAX 4.1 cm IVS Diastolic Thickness 1.1 cm 0.6 - 1.0 / 0.6 - 0.9 cm LVPW Diastolic Thickness 1.8 cm 0.6 - 1.0 / 0.6 - 0.9 cm LV Relative Wall Thickness 0.5 RV Internal Dim ED PLAX 3.3 cm LA Systolic Diameter LX 4.7 cm 3.0 - 4.0 / 2.7 - 3.8 cm LA Volume 110.2 cm??? 18 - 58 / 22 - 52 cm??? M-MODE Aortic Root Diameter MM 3.4 cm LA Systolic Diameter MM 5.5 cm LA Ao Ratio MM 1.6 MV E Point Septal Separation 0.6 cm AV Cusp Separation MM 1.9 cm DOPPLER AV Peak Velocity 100.7 cm/s AV Peak Gradient 4.1 mmHg AI Peak Velocity 423.2 cm/s AI Peak Gradient 71.6 mmHg AI Pressure Half Time 341.6 ms MV E' Velocity 7.8 cm/s TR Peak Velocity 317.0 cm/s TR Peak Gradient 40.2 mmHg Right Ventricular Systolic Press 48.5 mmHg FINDINGS Left Ventricle Left ventricular ejection fraction is estimated at 55-60 % .left ventricular cavity size normal. Mildly increased left ventricular wall thickness. Right Ventricle Normal right ventricular size and function. Moderate pulmonary hypertension. Right ventricular systolic pressure estimated at 49 mm hg. Right Atrium Normal right atrial size. Left Atrium Moderately increased left atrial diameter. Severely increased left atrial volume. Mildly increased left atrial area. Mitral Valve Mitral valve thickened. Severe mitral regurgitation.mitral annular calcification. Aortic Valve Trileaflet aortic valve. Aortic valve sclerosis. Mild aortic regurgitation. Tricuspid Valve Structurally normal tricuspid valve. Mild tricuspid regurgitation. Pulmonic Valve Structurally normal pulmonic valve. Mild pulmonic regurgitation. Pericardium Normal pericardium. Aorta Normal size aortic root and proximal ascending aorta. CONCLUSIONS 1. Normal left ventricle size and systolic function 2. Severe mitral regurgitation 3. Mild tricuspid, aortic and pulmonic regurgitation 4. Moderate pulmonary hypertension Previewed by: Dr. Clement Ko MD (Electronically Signed) Final Date: 29 April 2022 10:42
[2022-04-29] MEDS: POTASSIUM CHLORIDE ER 20 MEQ TAB.ER PO SCH ×2 (11:38→15:48)
--- NOTE | 2022-04-29 12:42 | XR ---
EXAMINATION TYPE: XR chest 1V portable DATE OF EXAM: 04/29/2022 COMPARISON: 04/27/2022 INDICATION: CHF short of breath TECHNIQUE: Single frontal view of the chest is obtained. FINDINGS: The heart size is normal. The pulmonary vasculature is normal. Fluid within the minor fissure is largely resolved. Some peripheral right basilar fluid may remain pr esent. Lungs otherwise appear clear IMPRESSION: 1. Suggestion of some resolving right pleural effusion.
--- NOTE | 2022-04-29 13:58 | P.PN ---
Subjective Progress Note Date: 04/29/22 72-year-old male seen in the emergency department on April 27, because of shortness of breath. The patient was a former smoker, and does smoke medical marijuana currently. The patient apparently came in with a diagnosis of shortness of breath. The patient's x-ray showed evidence of a right-sided ple ural effusion, which appear to be a bit loculated, and was tracking along the minor fissure. The patient had a prior chest x-ray on April 07, which also showed a right-sided pleural effusion. The more recent chest x-ray, shows the effusion to be a bit worse. He also was recently diagnosed with bronchitis, and was treated, improved. Patient denied any chest pain or chest discomfort. There is no fever or chills. There was no cough or phlegm production. CBC was completely normal. D-dimer was 1.0. Sodium 140, potassium 3.4, chlorides 107, CO2 27, BUN 24, and creatinine 1.17. Glucose was 109. Troponins were 0.083, 0.091, and 0.097. N-terminal proBNP was 3280. The patient tested negative for influenza A and influenza B. The patient also tested negative for coronavirus infection. Chest x-ray showed a slightly enlarged right-sided pleural effusion which was loculated. CT angiogram was negative for pulmonary embolism. It did show borderline heart size, and possible early CHF. In addition, there is enlarged mediastinal and hilar lymph nodes, which may be reactive in nature. The patient is seen today 04/29/2022 in follow-up on the selective care unit. He is currently resting quite comfortably in bed. Awake and alert in no acute distress. Maintaining good O2 saturations in the 90s on room air. Ultrasound of the bilateral chest revealed no layering basilar pleural effusion on either side. No thoracentesis required. Today's chest x-ray reveals resolving right pleural effusion. Echocardiogram revealed preserved left ventricular systolic function with ejection fraction 55-60%. There is severe mitral regurgitation. Moderate pulmonary hypertension. Blood cultures revealed no growth. White count 9.0. Hemoglobin 15.4. Sodium 138. Potassium 3.6. BUN 34. Creatinine 1.41 glucose 152. ProBNP 1740. He is continued on IV diuretics. Currently in a -2.8 L balance. Objective - Vital Signs Vital signs: Vital Signs Temp 97.7 F 04/29/22 08:00 Pulse 86 04/29/22 13:23 Resp 16 04/29/22 08:00 BP 123/80 04/29/22 11:40 Pulse Ox 97 04/29/22 11:40 FiO2 Intake & Output 04/28/22 04/29/22 04/29/22 18:59 06:59 18:59 Output Total 200 300 Balance -200 -300 Weight 80.6 kg Output: Urine 200 300 Other: Voiding Method Urinal Urinal # Voids 1 - Exam GENERAL EXAM: Alert, pleasant 72-year-old male, on room air, comfortable in no apparent distress. HEAD: Normocephalic. EYES: Normal reaction of pupils, equal size. NOSE: Clear with pink turbinates. THROAT: No erythema or exudates. NECK: No masses, no JVD. CHEST: No chest wall deformity. LUNGS: Equal air entry with faint crackles in the right base. CVS: S1 and S2 normal with no audible murmur, regular rhythm. ABDOMEN: No hepatosplenomegaly, normal bowel sounds, no guarding or rigidity. SPINE: No scoliosis or deformity SKIN: No rashes CENTRAL NERVOUS SYSTEM: No focal deficits, tone is normal in all 4 extremities. EXTREMITIES: There is no peripheral edema. No clubbing, no cyanosis. Peripheral pulses are intact. - Labs CBC & Chem 7: 04/29/22 08:31 04/29/22 08:31 Labs: Abnormal Lab Results - Last 24 Hours (Table) 04/29/22 Range/Units 08:31 BUN 34 H (9-20) mg/dL Creatinine 1.41 H (0.66-1.25) mg/dL Glucose 152 H (74-99) mg/dL Total Protein 6.2 L (6.3-8.2) g/dL Microbiology - Last 24 Hours (Table) 04/27/22 13:50 Blood Culture - Preliminary Blood No Growth after 24 hours 04/27/22 14:17 Blood Culture - Preliminary Blood No Growth after 24 hours Assessment and Plan Assessment: Shortness of breath, which may relate to the recent episode of bronchitis, or a small loculated right-sided effusion. Diuresed well, chest x-ray improved. Rule out non-ST segment elevation myocardial infarction. No evidence of significant pleural effusion, on ultrasound of the chest. Severe mitral regurgitation Moderate pulmonary hypertension Prior history of tobacco use. History of marijuana use. Plan: The patient was seen and evaluated Currently stable and on room air Chest x-ray shows improvement in the right pleural effusion No plans for thoracentesis Home once cleared by cardiology/medicine I have personally seen and examined the patient, performed the documentation and the assessment and plan as written. Number of minutes spent on the visit: 10.
[2022-04-29 16:30] VITALS: BP 123/73; PULSE 87
--- NOTE | 2022-04-29 18:30 | PN ---
PROGRESS NOTE SUBJECTIVE: Mr. Galan is doing a little better today. His shortness of breath has improved. Echo revealed ejection fraction that is preserved, but significant mitral regurgitation with calcified mitral valve leaflets. He has also a loculated right-sided pleural effusion. From a cardiac standpoint, I am recommending that we continue diuresis at least for 1 more day and then see how he does. His potassium is 3.6. We will offer some supplements. His troponin elevation is not significant and not suggestive of any myocardial injury. The LV size is normal suggesting that this mitral regurgitation is probably not that significant, and the patient does not seem to have any severe exertional shortness of breath. Based on clinical course, we will make further recommendations. OBJECTIVE: VITAL SIGNS: Stable. NECK: JVD 1 cm. No carotid bruit. HEART: S1 and S2 heard normally. There is a short systolic murmur at the left sternal border and apex. LUNGS: Actually reveal improved air entry with some diminished breath sounds in the right mid zone. The rest of the physical exam, unchanged. MMODL / IJN: [id number] /
--- NOTE | 2022-04-29 22:14 | DS ---
DISCHARGE SUMMARY FINAL DIAGNOSES: 1. Right pleural effusion, shortness of breath, possible congestive heart failure acute exacerbation. 2. Weight loss, rule out malignancy. 3. Troponin 0.083. Acute spk-DB-lsjzsct-elevation type 2 myocardial infarction. 4. History of bowel resection. 5. Anxiety and depression. 6. Hypertension. 7. Multiple medical issues. DISCHARGE DISPOSITION: The patient will be discharged in stable condition and guarded prognosis. Discharge cleared by Cardiology and Pulmonology. Stable, overall prognosis guarded. HISTORY OF PRESENT ILLNESS: A 72-year-old gentleman with a past medical history of multiple medical problems, admitted with pleural effusion with shortness of breath and multiple other medical problems. The patient treated with IV Lasix, improved significantly. A 2D echo showed normal ejection fraction with severe mitral regurgitation and moderate pulmonary hypertension. Dr. Arndt cleared the patient for discharge. Chest x-ray much improved. PHYSICAL EXAMINATION: VITAL SIGNS: Stable. CARDIOVASCULAR: S1, S2. ABDOMEN: Soft. DISCHARGE ADVICE AND MEDICATIONS: 1. Diet is cardiac. 2. Activity as tolerated. 3. Followup with Dr. Handy, Dr. Arndt, and Dr. Mayte Russo is recommended. 4. Continue home medications and new medications are: a. Coreg 6.25 mg b.i.d. b. DuoNeb q.i.d. and p.r.n. c. Lasix 40 mg p.o. b.i.d. d. Norvasc 5 mg daily. e. KCl 20 mEq p.o. b.i.d. 5. CBC, BMP in the outpatient setting. Once again, the patient will be discharged in stable condition and guarded prognosis. MMODL / IJN: [id number] /
== END 2022-04-29 16:44 | disposition home or self-care (01) ==
LOC: EC 12:14 → INTOOBSV 16:24 → 3SCARD 16:24
PROVIDERS: ADMIT Hospitalist; ATTEND Hospitalist
DX: I26.99 Other pulmonary embolism without acute cor pulmonale (principal); I21.A1 Myocardial infarction type 2; F12.90 Cannabis use, unspecified, uncomplicated; F41.9 Anxiety disorder, unspecified; F32.A Depression, unspecified; I27.20 Pulmonary hypertension, unspecified; J43.9 Emphysema, unspecified; K57.30 Diverticulosis of large intestine without perforation or abscess without bleeding; K44.9 Diaphragmatic hernia without obstruction or gangrene; M51.34 Other intervertebral disc degeneration, thoracic region; N28.1 Cyst of kidney, acquired; I08.3 Combined rheumatic disorders of mitral, aortic and tricuspid valves; I10 Essential (primary) hypertension; I37.1 Nonrheumatic pulmonary valve insufficiency; I71.23 Aneurysm of the descending thoracic aorta, without rupture; Z79.899 Other long term (current) drug therapy; Z88.0 Allergy status to penicillin; Z87.891 Personal history of nicotine dependence; Z20.822 Contact with and (suspected) exposure to COVID-19
CPT/HCPCS: 96376 ×4; 96372 ×3; 96374; 99285; 36415; 94640 ×3; 94760; 93005; 93306; 85379; 83880 ×2; 80053 ×2; 80048; 83605; 83735; 84484; 85025 ×3; 85610; 85730; 87040; 87502; 87635; 71045; 71046; 76604; 71275; G0378 ×3; J1940 ×3; J1650; Q9967; J1644 ×2

== ENCOUNTER → 2022-07-15 | Outpatient (CLI) | payer MEDICARE ==
--- NOTE | 2022-07-15 16:28 | XR ---
EXAMINATION TYPE: XR chest 2V DATE OF EXAM: 07/15/2022 4:13 PM COMPARISON: Chest radiographs from 05/15/2022 TECHNIQUE: XR chest 2V Frontal and lateral views of the chest. CLINICAL INDICATION:Male, 72 years old with history of Z01.818 PRE SURGICAL; FINDINGS: Lungs/Pleura: No evidence of focal consolidation or pneumothorax. Similar blunting of the right costo phrenic angle. Pulmonary vascularity: Unremarkable. Heart/mediastinum: Cardiomediastinal silhouette is unremarkable. Musculoskeletal: Multiple level degenerative disc disease changes seen throughout the spine. No acute osseous adenopathy. IMPRESSION: Similar small right pleural effusion.
[2022-07-15 23:30] LABS: African American GFR (CKD) 70.1 (60.0-200.0); Anion Gap 10.6 mmol/L (10.00-18.00); Blood Urea Nitrogen 30.3 mg/dL (9.0-27.0); Carbon Dioxide 28.4 mmol/L (20.0-27.5); HCT 42.6 % (39.6-50.0); MCH 31.5 pg (27.0-32.0); MCHC 32.9 g/dL (32.0-37.0); MCV 95.7 fL (80.0-97.0); Mean Platelet Volume 11.1 fL (9.5-12.2); NRBC Per 100 WBC 0 /100 WBCS (0.0-0.0); Non-African American GFR(CKD) 60.5 (60.0-200.0); Platelet Count 294 X 10*3/uL (140-440); Potassium 4.2 mmol/L (3.5-5.5); RBC 4.45 X 10*6/uL (4.40-5.60); RDW 14.1 % (11.5-14.5); WBC 9.95 X 10*3/uL (4.50-10.00)
== END | disposition home or self-care (01) ==
LOC: LABPAT 15:27
PROVIDERS: ATTEND Internal Medicine Interventional Cardiology
DX: Z01.812 Encounter for preprocedural laboratory examination (principal); I34.0 Nonrheumatic mitral (valve) insufficiency; J90 Pleural effusion, not elsewhere classified
CPT/HCPCS: 71046; 80051; 82565; 84520; 85027

== ENCOUNTER 2022-07-21 06:05 | Day surgery (SDC) | payer MEDICARE ==
[~2022-07-21 06:05] MED LIST: ALPRAZolam 0.25 MG TAB PO PRN; ALPRAZolam 0.5 MG TAB PO PRN; ASPIRIN 325 MG TAB PO STA; ATORVASTATIN 80 MG TAB PO STA; HEPARIN SODIUM,PORCINE 10,000 UNIT in SODIUM CHLORIDE 0.9% 1,000 ML IRRIGATION PRN; HEPARIN SODIUM,PORCINE 2,500 UNIT in SODIUM CHLORIDE 0.9% 250 ML IRRIGATION PRN; NITROGLYCERIN SL TABS 0.4 MG TAB SUBLINGUAL PRN; SODIUM CHLORIDE 0.9% 1,000 ML in EMPTY BAG 1 BAG IV SCH
[2022-07-21 07:08] VITALS: RESP 16; TEMP 98.1
[2022-07-21] MEDS ORDERED: fentaNYL (PF) 50 MCG/ML 2 ML AMP ONE (07:09)
[2022-07-21] MEDS: BENZOCAINE SPRAY 1 CAN MUCOUS MEM ONE ×2 (07:44→07:48)
[2022-07-21] MEDS ORDERED: MIDAZOLAM 2 MG/2 ML VIAL IV ONE ×4 (07:49→11:05)
[2022-07-21] MEDS: fentaNYL (PF) 50 MCG/1 ML VIAL IV ONE ×2 (07:49→07:55)
--- NOTE | 2022-07-21 08:20 | P.PCN ---
Date of Procedure: 07/21/22 Operative Findings: Transesophageal echocardiogram report Performing physician Reji Montez MD Procedure performed Attempted transesophageal echocardiogram Indication Mitral regurgitation Complication None Level of sedation Moderate with sedation length of about 20 minutes Procedure description After obtaining an informed consent the patient was brought to the transesophageal echocardiogram room. Her pulse oximetry and heart rate monitors were attached to the patient. Subsequently after conscious sedation was performed using Versed and fentanyl the transesophageal echocardiogram was advanced through the bite guard the proximal esophageal. Subsequently broke up walk and able to be advanced with a mid esophageal because the patient likely lav what it seems to be esophageal stricture. After discussing the case with his daughter she mentioned that lately he has been chocking drinking water and eating food. For that reason the procedure was terminated Conclusion Attempted transesophageal echocardiogram was performed and was unsuccessful. The probe was advanced only to the proximal esophageal, I was unsuccessful in advancing the probe to the mid esophageal likely because of esophageal disease/stricture. Postprocedure management The patient is going to undergo a heart catheterization by Dr. Russo Possible the patient to be evaluated by gastrointestinal specialist
[2022-07-21] MEDS ORDERED: LIDOCAINE 1% INJ 10MG/ML (20 ML MDV) ONE (10:24)
[2022-07-21] MEDS ORDERED: VERAPAMIL 2.5 MG/ML 2 ML AMP ONE (10:24)
[2022-07-21] MEDS ORDERED: HEPARIN SODIUM 1,000 UN/ML (10ML VL) ONE (11:00)
[2022-07-21] MEDS ORDERED: LIDOCAINE 1% INJ 10MG/ML (20 ML MDV) SQ ONE (11:03)
--- NOTE | 2022-07-21 11:21 | P.CONS ---
History of Present Illness - Reason for Consult Consult date: 07/21/22 Dysphagia, possible esophageal stricture Requesting physician: Fransisco Russo - Chief Complaint Dysphagia - History of Present Illness This is a pleasant 72-year-old male who was brought in by cardiology for elective outpatient CONNER and cardiac catheterization. He has a history of hypertension and hyperlipidemia, and recent Lexiscan stress test was somewhat sub-optimal with a reduced EF of 35-40%. Echo revealed EF 45-50% with severe mitral regurgitation and moderate aortic regurgitation. Patient came in today for CONNER, Dr. Montez attempted to perform CONNER however he had difficulty advancing the probe to the mid esophageal he believed likely due to esophageal disease/stricture. Gastroenterology was consulted for dysphagia with concern for esophageal stricture. Patient is currently recovering from CONNER in the extended stay unit and is scheduled to undergo cardiac catheterization this morning. He currently is somewhat sedated however easily arousable. He states he has been suffering with some dysphasia and difficulty of swallowing solid foods for at least the last 6 months duration. He does has also been associated with weight loss near 25 pounds over the last year according to his daughter. He states that he has no difficulty with swallowing liquids. Does not believe he's had an EGD in the past, however has had colonoscopies in the past however unsure of last colonoscopy. Also has history of diverticulitis status post resection. Patient is currently denying any shortness of breath, chest pain, abdominal pain, nausea or vomiting. He has no vomiting associated with eating however will choke at times again only with solids. He is not on any anticoagulation. Review of Systems REVIEW OF SYSTEMS: CARDIOPULMONARY: No chest pain or shortness of breath. Gastrointestinal: No abdominal pain or epigastric pain. Patient reports difficulty with swallowing solids at times, having some choking episodes. Associated with a 25 pound weight loss. No nausea or vomiting. No hematemesis, coffee-ground emesis. No rectal bleeding, or melena. GENITOURINARY: No dysuria or hematuria. MUSCULOSKELETAL: Reports normal range of motion. SKIN: No rashes. No jaundice. ENDOCRINE: No chills, fevers. No excessive weight gain or loss. No polydipsia or polyuria. PSYCHIATRIC: Unremarkable. NEUROLOGY: No change in mental status. Denies dizziness, headache. ENT: Vision unremarkable. CONSTITUTIONAL: No recent weight loss. No fever, chills, night sweats. Past Medical History Past Medical History: Coronary Artery Disease (CAD), GERD/Reflux, Hypertension, Pneumonia Additional Past Medical History / Comment(s): DIVERTICULITIS History of Any Multi-Drug Resistant Organisms: None Reported Past Surgical History: Bowel Resection, Prostate Surgery Additional Past Surgical History / Comment(s): BPH Past Anesthesia/Blood Transfusion Reactions: No Reported Reaction Past Psychological History: Anxiety, Depression Smoking Status: Current every day smoker Past Alcohol Use History: None Reported Additional Past Alcohol Use History / Comment(s): QUIT SMOKING IN 1974. QUIT ETOH 2000 Past Drug Use History: Marijuana Additional Drug Use History / Comment(s): SMOKES. - Past Family History Father Family Medical History: Unable to Obtain Additional Family Medical History / Comment(s): in a car accident Mother Family Medical History: Unable to Obtain Additional Family Medical History / Comment(s): alot of medical problems unsure of what Medications and Allergies Home Medications Medication Instructions Recorded Confirmed Type Ascorbic Acid [Vitamin C] 500 mg PO DAILY 04/27/22 07/21/22 History Calcium Carbonate [Calcium] 600 mg PO DAILY 04/27/22 07/21/22 History Ibuprofen [Motrin] 400 mg PO Q4H 04/27/22 07/21/22 History Magnesium 200 mg PO DAILY 04/27/22 07/21/22 History Venlafaxine HCl ER [Effexor XR] 75 mg PO QAM 04/27/22 07/21/22 History Venlafaxine HCl [Effexor XR] 150 mg PO QAM 04/27/22 07/21/22 History Zinc Gluconate [Zinc] 50 mg PO DAILY 04/27/22 07/21/22 History carvediloL [Coreg] 6.25 mg PO BID-W/MEALS #60 tab 04/29/22 07/21/22 Rx Albuterol Inhaler [Ventolin Hfa 1 puff INHALATION QID PRN 07/20/22 07/20/22 History Inhaler] Furosemide [Lasix] 40 mg PO QAM 07/20/22 07/21/22 History Ipratropium-Albuterol Nebulize 3 ml INHALATION RT-QID PRN 07/20/22 07/21/22 History [Duoneb 0.5 mg-3 mg/3 ml Soln] amLODIPine [Norvasc] 5 mg PO QAM 07/20/22 07/21/22 History Allergies Allergy/AdvReac Type Severity Reaction Status Date / Time Penicillins Allergy Rash/Hives Verified 07/20/22 08:56 Physical Exam Vitals: Vital Signs Temp Pulse Resp BP BP Pulse Ox 07/21/22 06:43 98.1 F 78 16 171/81 152/82 98 Intake and Output 07/20/22 07/21/22 07/21/22 22:59 06:59 14:59 Intake Total 500 350 Balance 500 350 Intake: IV 500 350 Other: Weight 86.5 kg General appearance: The patient is drowsy but easily arousable, oriented, laurence ears in no acute distress. HET: Head is normocephalic and atraumatic. Conjunctiva pink. Sclera anicteric. Neck: Supple without lymphadenopathy. Trachea midline. Heart: S1 S2. Regular rate and rhythm. Lungs: Clear to auscultation. Abdomen: Soft, nontender, nondistended with bowel sounds. No guarding or rigidity. Skin: No rashes. No jaundice. Extremities: Normal skin color and turgor. No pedal edema. Neurological: No focal deficits. Alert and oriented x3. Assessment and Plan (1) Dysphagia Narrative/Plan: 72-year-old male who came in for elective outpatient CONNER and cardiac catheterization for abnormal stress test and echocardiogram, underwent attempted CONNER however Dr. Montez with difficulty passing through midportion of the esophagu s likely due to esophageal stricture. Patient has also had complaints of dysphasia, difficulty with swallowing solids and choking for the last 6 months duration. No previous history of EGD or esophageal stricture/dilation. Also complains of associated 25 pound weight loss in the last 6 months to 1 year. Gastroenterology was asked to see patient regarding dysphagia and scheduled for outpatient EGD, Dr. Russo from cardiology requesting patient had EGD done tomorrow. Plan is for patient to have cardiac catheterization later this morning with discharge this afternoon. Current Visit: Yes Status: Acute Code(s): R13.10 - DYSPHAGIA, UNSPECIFIED SNOMED Code(s): 31307113 (2) Esophageal stricture Current Visit: Yes Status: Acute Code(s): K22.2 - ESOPHAGEAL OBSTRUCTION SNOMED Code(s): 47324052 Plan: 1. Continue symptomatic and supportive care 2. Continue with recommendations from cardiology 3. Hold any anticoagulation 4. Nothing to eat or drink after midnight 5. Patient is scheduled for outpatient EGD tomorrow 07/22/[address] Ricardo. This was discussed with both patient and his daughter Shruthi Barrera who is at the bedside. They are agreeable with plan. 6. Recommend soft diet Thank you for this consultation, patient is cleared from gastroenterology for discharge. We will sign off at this time. Dr. Candy Ricardo I agree with the dictator's note, documented as a scribe by Chiquis Renteria.
[2022-07-21] MEDS ORDERED: NITROGLYCERIN SL TABS 0.4 MG TAB SUBLINGUAL ONE ×3 (11:41→12:00)
[2022-07-21] MEDS ORDERED: HEPARIN SODIUM 1,000 UN/ML (10ML VL) IV ONE (11:45)
[2022-07-21 11:58] LABS: O2 Sat Blood Gas 74.3 %
[2022-07-21 12:00] LABS: O2 Sat Blood Gas 73.4 %
[2022-07-21] MEDS ORDERED: SODIUM CHLORIDE 0.9% 1,000 ML IV SCH (12:00)
[2022-07-21 12:02] LABS: O2 Sat Blood Gas 96.2 %
[2022-07-21] MEDS ORDERED: IOPAMIDOL-370 100ML BTL INJ ONE (12:02)
[2022-07-21 15:39] VITALS: PULSE 68
[2022-07-21 15:47] VITALS: BP 138/63
--- NOTE | 2022-07-21 22:05 | CC ---
CARDIAC CATHETERIZATION REPORT DATE OF SERVICE: 07/21/2022. PROCEDURES PERFORMED: 1. Right and left heart catheterization and coronary angiography. 2. Left ventriculography. PERFORMED BY: Dr. Mayte Russo. Moderate conscious sedation time was 57 minutes. The patient was administered Versed. Oxygen saturation, hemodynamics, and EKG were monitored closely. CLINICAL INFORMATION: Mr. Arpit Galan is a 72-year-old gentleman with a history of hypertension, hyperlipidemia, and recent echo suggesting severe mitral regurgitation with a significant exertional shortness of breath. He also has an ejection fraction that was low, and subsequently, on an echocardiogram, EF was somewhat better, but mitral regurgitation was severe. Because of significant valvular disease, he was advised a transesophageal echo and cardiac catheterization. He has had some kind of choking problems and swallowing problems and was considering seeing GI as well. The patient came in for transesophageal echo, but this procedure was aborted because of a stricture in the mid esophagus, and he was seen by GI and will have upper endoscopy tomorrow. PROCEDURE NOTE: Under local anesthesia and strict aseptic precautions, a 6-Australian introducer was placed in the right radial artery. I used ultrasound-guided micropuncture needle technique. From the right brachial, there was already an access placed in the brachial vein; and therefore, I used the same access and exchanged over a micropuncture wire and placed a 6-Australian sheath. I performed right heart catheterization using a 6-Australian balloon- tipped flotation catheter. Hemodynamics and saturations were obtained. Subsequently, I performed coronary angiography from right radial approach. I used a JR4. Initially, because of a difficult seating with a JL3.5, I switched over to a JL4 catheter. I also performed LV-gram with a pigtail catheter. The sheath was taken out, and TR band was applied as per protocol. Saturation in the fingers of the right hand was 95%. The brachial sheath was taken out, and manual pressure was used. The patient received 3000 units of intravenous heparin. He tolerated the procedure well without complications. The results were discussed with the patient and daughter, and he will be discharged today and will come in for upper endoscopy tomorrow. CARDIAC CATHETERIZATION FINDINGS: The left ventricular end-diastolic pressure was about 13 mmHg without any gradient across aortic valve. Right atrial pressure was 4 mmHg. Right ventricular pressure was 40/4. Pulmonary arterial pressure was 40/12 with a mean of 23. Wedge pressure was 10. V wave was about 16 mmHg. Thermodilution cardiac output was 6.7 L. Radial artery saturation was 96%. Pulmonary artery saturation was 73%. This transferred into a Srinivasa cardiac output of 7.7 L. CORONARY ANGIOGRAPHY FINDINGS: RIGHT CORONARY ARTERY: Large dominant vessel, no significant disease. Bifurcates into large PLV and smaller PDA, no significant disease, mild calcification. LEFT MAIN CORONARY ARTERY: This is a short, patent, disease-free vessel, that bifurcates into LAD and circumflex. LEFT ANTERIOR DESCENDING CORONARY ARTERY: Good-caliber vessel, extends along the anterior wall, gives off septal and diagonal branches. In the proximal portion, gives off a good-sized diagonal branch, and there is a 35% narrowing. The caliber improves and runs all the way to the apex. There are several smaller septal branches that are free of significant disease. No significant disease in the LAD other than the 30% to 35% mid lesion after the diagonal branch. Mild calcification is noted. LEFT POSTERIOR CIRCUMFLEX CORONARY ARTERY: Technically nondominant vessel, gives off a good-sized obtuse marginal that runs laterally and then a groove branch and then a small posterolateral branches. Minor irregularities. No significant disease. LEFT VENTRICULOGRAM: Left ventriculogram was performed in 30-degree REILLY projection. There is probably some posterior mitral regurgitation. Because it was probably behind the heart, I could not see a good cuff. Ejection fraction is excellent, probably more than 60% on the LV- gram, although there was some ventricular ectopy. There is moderate posterior mitral regurgitation. Aortic root appears to be of normal size. FINAL IMPRESSION: This patient has normal filling pressures. No significant pulmonary hypertension. Normal cardiac output of about 6 to 7 L. No oxygen step-up. Right dominant system. No significant obstructive coronary artery disease other than 35% mid left anterior descending. Moderate posterior mitral regurgitation without elevated filling pressures. RECOMMENDATIONS: For now, we will pursue medical therapy, but I will perform a transthoracic echo today and discharge him later on today. Upper endoscopy tomorrow. We will see him in the office next week. Discussed my thoughts in detail with the patient as well as his daughter. MMODL / IJN: [id number] /
--- NOTE | 2022-07-23 15:27 | CA ---
Transthoracic Echo Report Name: Arpit Galan Age: 72 Gender: M : 1950 Exam Date: 07/21/2022 13:37 Exam Location: [place] [facility] Ht (in): 72 Wt (lb): 188 Ordering Physician: Fransisco Russo MD ([id number]) Attending/Referring Phys: Composite Mechanic Ry Chin RDCS Procedure CPT: Indications: assess valves/function- pre cath Cardiac Hx: HTN; MR; AR; Technical Quality: Fair Contrast 1: Total Dose (mL): Contrast 2: Total Dose (mL): MEASUREMENTS (Male / Female) Normal Values 2D ECHO LV Diastolic Diameter PLAX 4.0 cm 4.2 - 5.9 / 3.9 - 5.3 cm LV Systolic Diameter PLAX 3.0 cm IVS Diastolic Thickness 2.1 cm 0.6 - 1.0 / 0.6 - 0.9 cm LVPW Diastolic Thickness 1.7 cm 0.6 - 1.0 / 0.6 - 0.9 cm LV Relative Wall Thickness 1.0 RV Internal Dim ED PLAX 3.3 cm LVOT Diameter 2.2 cm LA Systolic Diameter LX 3.1 cm 3.0 - 4.0 / 2.7 - 3.8 cm LV Diastolic Volume MOD BP 102.3 cm??? 67 - 155 / 56 - 104 cm??? LV Systolic Volume MOD BP 47.7 cm??? 22 - 58 / 19 - 49 cm??? LV Ejection Fraction MOD BP 53.4 % >= 55 % LV Diastolic Volume MOD 4C 159.3 cm??? LV Systolic Volume MOD 4C 65.1 cm??? LV Ejection Fraction MOD 4C 59.1 % LV Diastolic Length 4C 8.1 cm LV Systolic Length 4C 6.2 cm LV Diastolic Volume MOD 2C 57.0 cm??? LV Systolic Volume MOD 2C 34.4 cm??? LV Ejection Fraction MOD 2C 39.6 % LV Diastolic Length 2C 6.9 cm LV Systolic Length 2C 6.4 cm M-MODE Aortic Root Diameter MM 3.4 cm LA Systolic Diameter MM 3.7 cm LA Ao Ratio MM 1.1 MV E Point Septal Separation 1.4 cm AV Cusp Separation MM 1.8 cm DOPPLER AV Peak Velocity 140.5 cm/s AV Peak Gradient 7.9 mmHg AI Peak Velocity 374.8 cm/s AI Peak Gradient 56.2 mmHg AI Pressure Half Time 433.6 ms LVOT Peak Velocity 79.9 cm/s LVOT Peak Gradient 2.6 mmHg AV Area Cont Eq pk 2.2 cm??? MV Peak Velocity 103.6 cm/s MV Peak Gradient 4.3 mmHg MV Mean Velocity 65.6 cm/s MV Mean Gradient 1.9 mmHg MV Velocity Time Integral 26.6 cm MR Peak Velocity 549.1 cm/s MR Peak Gradient 120.6 mmHg Mitral E Point Velocity 53.2 cm/s Mitral A Point Velocity 86.4 cm/s Mitral E to A Ratio 0.6 MV Deceleration Time 271.3 ms MV E' Velocity 4.7 cm/s Mitral E to MV E' Ratio 11.4 Pulmonary Vein S/D Ratio 1.4 Pulmonary Vein A to Mitral A Rat 0.4 TR Peak Velocity 102.5 cm/s TR Peak Gradient 4.2 mmHg Right Ventricular Systolic Press 9.2 mmHg PV Peak Velocity 89.6 cm/s PV Peak Gradient 3.2 mmHg FINDINGS Left Ventricle Left ventricular ejection fraction is estimated at 55-60 %. Moderate concentric left ventricular hypertrophy. Grade 2 diastolic dysfunction. Normal basal systolic function. Right Ventricle Normal right ventricular size and function. Right Atrium Normal right atrial size. Left Atrium Normal left atrial size. Myxomatous IAS. Mitral Valve Mitral valve thickened. Minimal mitral stenosis. [id number] mitral regurgitation. Aortic Valve Trileaflet aortic valve. Diffuse thickening (sclerosis) of the aortic valve cusps without reduced excursion. Ivlx-qc-plplglsm aortic regurgitation. Tricuspid Valve Mild tricuspid regurgitation. Pulmonic Valve Mild pulmonic regurgitation. Pericardium Normal pericardium. No pericardial effusion. Aorta Normal size aortic root and proximal ascending aorta. CONCLUSIONS Technically difficult study for interpretation. Normal LV systolic function. The EF is 55-60%. Moderate LVH. Diastolic dysfunction Moderate to severe mitral regurgitation with a central jet. Mildly thickened mitral valve leaflets Aortic sclerosis with no stenosis with mild to moderate insufficiency Previewed by: Dr. Reji Montez MD (Electronically Signed) Final Date: 22 July 2022 08:53
== END 2022-07-21 16:54 | disposition home or self-care (01) ==
LOC: CATHCVL 06:05
PROVIDERS: ATTEND Internal Medicine Interventional Cardiology
DX: I34.0 Nonrheumatic mitral (valve) insufficiency (principal); I25.10 Atherosclerotic heart disease of native coronary artery without angina pectoris; E78.5 Hyperlipidemia, unspecified; F17.200 Nicotine dependence, unspecified, uncomplicated; I10 Essential (primary) hypertension; K21.9 Gastro-esophageal reflux disease without esophagitis; K22.2 Esophageal obstruction; Z79.1 Long term (current) use of non-steroidal anti-inflammatories (NSAID); Z88.0 Allergy status to penicillin
CPT/HCPCS: 93306; 93460; 85018; 82810; C1769 ×2; C1894; C1751; J2250; J2001; J1644; Q9967; J3010

== ENCOUNTER → 2022-07-22 | Day surgery (SDC) | payer MEDICARE ==
[2022-07-21 12:21] VITALS: BMI 25.7
[~2022-07-22] MED LIST changes: -ALPRAZolam 0.25 MG TAB PO PRN; -ALPRAZolam 0.5 MG TAB PO PRN; -ASPIRIN 325 MG TAB PO STA; -ATORVASTATIN 80 MG TAB PO STA; -HEPARIN SODIUM,PORCINE 10,000 UNIT in SODIUM CHLORIDE 0.9% 1,000 ML IRRIGATION PRN; -HEPARIN SODIUM,PORCINE 2,500 UNIT in SODIUM CHLORIDE 0.9% 250 ML IRRIGATION PRN; +LACTATED RINGERS 1,000 ML IV SCH; +LIDOCAINE 1% (10MG/ML) FOR IV START INTRADERMA PRN; -NITROGLYCERIN SL TABS 0.4 MG TAB SUBLINGUAL PRN; -SODIUM CHLORIDE 0.9% 1,000 ML in EMPTY BAG 1 BAG IV SCH
[2022-07-22 12:11] VITALS: BP 141/80; PULSE 81; RESP 20; TEMP 97
== END ==
LOC: ORWHC2ENDO 11:37
PROVIDERS: ATTEND Internal Medicine Gastroenterology
DX: R13.10 Dysphagia, unspecified (principal)

== ENCOUNTER 2022-07-28 05:51 | Day surgery (SDC) | payer MEDICARE ==
[2022-07-23 11:16] VITALS: BMI 25.4
[2022-07-28 06:26] VITALS: TEMP 97.7
[2022-07-28] MEDS: LACTATED RINGERS 1,000 ML IV SCH ×2 (06:41→07:01)
[2022-07-28] MEDS ORDERED: LIDOCAINE 2% INJ 20 MG/ML (2 ML VIAL) ONE (07:03)
[2022-07-28] MEDS ORDERED: PROPOFOL 10 MG/ML 20 ML VIAL IV ONE (07:03)
--- NOTE | 2022-07-28 07:12 | P.PCN ---
Date of Procedure: 07/28/22 Procedure(s) Performed: BRIEF HISTORY: Patient is a 72-year-old, pleasant, white male, scheduled for an upper endoscopy as a part of evaluation of intermittent dysphagia. He recently had an attempted CONNER by Dr. Russo and the scope could not be advanced into the esophagus. He is Hence scheduled for an upper endoscopy with a possible dilation. PROCEDURE PERFORMED: Esophagogastroduodenoscopy. PREOPERATIVE DIAGNOSIS: Intermittent dysphagia to solids. IV sedation per anesthesia. PROCEDURE: After informed consent was obtained, the patient was brought into the endoscopy unit. IV sedation was administered by Anesthesia under continuous monitoring. Initially the Olympus GIF-140 video endoscope was inserted into the mouth. Esophagus intubated with mild difficulty. It was gradually advanced into the stomach and duodenum and carefully examined. The bulb and the second part of the duodenum appeared normal. The scope at this time was withdrawn to the stomach, adequately insufflated with air, and upon careful examination, mucosa of the antrum, body, cardia and the fundus appeared normal. The scope was then withdrawn into the esophagus. The GE junction was located at 39 cm from the incisors. Small sliding type I'll hernia noted. The esophagus appeared normal. There were no erosions or ulcerations seen. There was no evidence of esophageal stricture. The proximal cervical esophagus was carefully examined and appeared normal. There was some hypertrophy of the cricopharyngeal muscle causing some difficulty in advancing the scope but there was no obvious stricture identified and the patient tolerated the procedure well. IMPRESSION: 1. Cricopharyngeal muscular hypertrophy causing some difficulty advancing the scope but no evidence of esophageal stricture. 2. Small hiatal hernia. RECOMMENDATIONS: The findings of this examination were discussed with the patient as well as his family. Discussed with the patient about diet modification. In the future if he continues to have progressive dysphagia to solids he will be a candidate for a cricopharyngeal myotomy. He was advised to follow up in office as needed based on his symptoms..
[2022-07-28 07:24] VITALS: RESP 16
[2022-07-28 07:37] VITALS: BP 147/77; PULSE 70
== END 2022-07-28 08:12 | disposition home or self-care (01) ==
LOC: ORWHC2ENDO 05:51
PROVIDERS: ATTEND Internal Medicine Gastroenterology
DX: K44.9 Diaphragmatic hernia without obstruction or gangrene (principal)
CPT/HCPCS: 43235; J2704; J2001

== ENCOUNTER → 2022-08-17 | Outpatient (CLI) | payer MEDICARE ==
--- NOTE | 2022-08-17 15:46 | XR ---
EXAMINATION TYPE: XR ribs LT DATE OF EXAM: 08/17/2022 CLINICAL HISTORY: Pain, Fall Four views of the ribs fail demonstrate evidence for displaced rib fracture or secondary sign of rib fracture. Visualized lungs are clear. No evidence for pneumothorax. IMPRESSION: No displaced rib fractures seen. ICD 10 NO FRACTURE, INITIAL EVALUATION
== END | disposition home or self-care (01) ==
LOC: RADXRMAIN 15:19
PROVIDERS: ATTEND Internal Medicine
DX: R07.81 Pleurodynia (principal)

== ENCOUNTER → 2023-08-09 | Outpatient (CLI) | payer MEDICARE ==
--- NOTE | 2023-08-09 13:46 | MR ---
EXAMINATION TYPE: MR lumbar spine wo con DATE OF EXAM: 08/09/2023 COMPARISON: None HISTORY: Low back pain into buttocks TECHNIQUE: Multiplanar, multisequence images of the lumbar spine were acquired without IV contrast. L1-L2: Normal disc appearance without desiccation. No herniation, protrusion or disc bulging. No ca nal stenosis is present. Foramina are patent bilaterally. L2-L3: Moderate disc desiccation. Subligamentous disc herniation measures 1 cm craniocaudal dimension by 6 mm AP dimension and results in moderate central stenosis. Extruded component difficult to exclu de. Mild foraminal encroachment seen bilaterally. L3-L4: Moderate disc desiccation with small subligamentous disc herniation measuring 5 mm AP dimensio n and 5 mm craniocaudal dimension. Mild effacement ventral thecal sac without evidence for central st enosis or lateral recess stenosis. No foraminal encroachment. L4-L5: Normal disc appearance without desiccation. No herniation, protrusion or disc bulging. No ca nal stenosis is present. Foramina are patent bilaterally. L5-S1: Mild disc desiccation. No herniation or protrusion. No central stenosis or lateral recess sten osis. Facet joint arthropathy with moderate bilateral foraminal encroachment. Lumbar segments are intact. No paraspinal masses are identified. Conus medullaris has a normal appe arance. IMPRESSION: 1. Multilevel degenerative disc disease. 2. Multilevel disc herniations at L2-3 and L3-4. Moderate central stenosis at L2-3. See above.
== END | disposition home or self-care (01) ==
LOC: RADMRIMAIN 11:28
PROVIDERS: ATTEND Psychiatry & Neurology Neurology
DX: M48.061 Spinal stenosis, lumbar region without neurogenic claudication (principal); M51.26 Other intervertebral disc displacement, lumbar region; M51.36 Other intervertebral disc degeneration, lumbar region; R26.89 Other abnormalities of gait and mobility; R53.1 Weakness
CPT/HCPCS: 72148

== ENCOUNTER → 2023-12-30 | Outpatient (CLI) | payer MEDICARE ==
--- NOTE | 2023-12-31 09:35 | XR ---
EXAMINATION TYPE: XR chest 2V DATE OF EXAM: 12/30/2023 COMPARISON: 08/17/2022, 07/15/2022 HISTORY: 73-year-old male [id number] PLEURAL EFFUSION, NOT ELSEWHERE CLASSIFIED TECHNIQUE: Frontal and lateral views FINDINGS: Mild hyperinflation. Chronic pleural parenchymal scarring at the right base with tethering of the lateral hemidiaphragm. Mild tortuosity of the thoracic aorta. Heart upper limits of normal in size. Mild hyperinflation. Right perihilar vascular markings remain unchanged back to 04/27/2022 at least. IMPRESSION: Chronic pleural parenchymal scarring with tethering of the hemidiaphragm at the right base. Possible background COPD. Otherwise, no definite acute process.
== END | disposition home or self-care (01) ==
LOC: RADXRMAIN 13:00
PROVIDERS: ATTEND Family Medicine
DX: J90 Pleural effusion, not elsewhere classified
CPT/HCPCS: 71046